=== PATIENT | male | born 1990 | race Caucasian/White ===

== ENCOUNTER 2021-12-15 15:54 | Inpatient (IN) | payer OTHER, SELFPAY ==
--- NOTE | ~2021-12-15 | CT_ITS ---
EXAMINATION: CT ABDOMEN AND PELVIS WITH CONTRAST CLINICAL INFORMATION: Question umbilical abscess with abdominal wall cellulitis COMPARISON: None TECHNIQUE: Multidetector volumetric images were obtained from the superior aspect of the liver through the pubic symphysis following administration 85 mL of Omnipaque 350 intravenous contrast. Sagittal and coronal reformatted images were obtained on the technologist's workstation. This CT examination was performed using dose optimization techniques as appropriate, variously including the following: *Automated exposure control *Adjustment of mA and/or kV according to patient size (this includes techniques or standardized protocols for targeted exams where dose is matched to indication/reason for exam; i.e. extremities or head) *Use of iterative reconstruction technique DLP: 1272 mGy-cm FINDINGS: Visualized lung bases are well aerated. The liver demonstrates normal size, contour and attenuation. The gallbladder is normal in appearance. The pancreas, spleen and adrenal glands are unremarkable. Symmetrically enhancing kidneys. No hydronephrosis bilaterally. Surgical changes of the stomach consistent with gastric bypass. Normal caliber loops of small and large bowel. Mild colonic stool burden. Minimal colonic diverticulosis without CT evidence to suggest active diverticulitis. Normal appendix. There is a tiny fat-containing umbilical hernia. There is soft tissue fullness within the subcutaneous tissues in the umbilical region, however, there is no well-defined fluid collection. There is mild skin thickening in this region. Normal caliber abdominal aorta. No retroperitoneal lymphadenopathy. The bladder is normal in appearance. The prostate gland is normal in size. No gross free pelvic fluid. No inguinal lymphadenopathy. Mild degenerative changes of the spine. CT/CT abdomen pelvis w IV con IMPRESSION: Tiny fat-containing umbilical hernia with overlying soft tissue fullness and mild skin thickening consistent with provided history of cellulitis. There is no well-defined subcutaneous fluid collection to suggest associated abscess. Fleischner guidelines were followed.
[2021-12-15 15:59] VITALS: BP 132/7; PULSE 77; RESP 18; TEMP 37.1; O2SAT 99; BMI 45.6
--- NOTE | 2021-12-15 19:12 | ED.SKABFB ---
HPI - Skin/Abscess/Foreign Bdy General Chief complaint: Skin/Abscess/Foreign Body <CATHY Rolon Last Filed: 12/15/21 20:43> Stated complaint: Abscess <CATHY Rolon Last Filed: 12/15/21 20:43> Time Seen by Provider: 12/15/21 18:43 <CATHY Rolon Last Filed: 12/15/21 20:43> Source: patient <CATHY Rolon Last Filed: 12/15/21 20:43> Mode of arrival: ambulatory <CATHY Rolon Last Filed: 12/15/21 20:43> History of Present Illness HPI narrative: 31-year-old male with no significant past medical history presenting to the ED complaining of suspected umbilical abscess/infection x4 days. Reports area started draining today. Denies fever, chills, nausea, vomiting, diarrhea, dysuria/hematuria <CATHY Rolon Last Filed: 12/15/21 20:43> Onset (ago): day(s) <CATHY Rolon Last Filed: 12/15/21 20:43> Related Data Allergies/Adverse reactions: Allergies Allergy/AdvReac Type Severity Reaction Status Date / Time amoxicillin [AMOXICILLIN] Allergy Unknown HIVES Unverified 12/11/19 16:14 <CATHY Rolon Last Filed: 12/15/21 20:43> Review of Systems Review of Systems: Constitutional: No Fever, No Chills, No Fatigue, No Malaise ENT/Mouth: No Hearing loss, No Ear Pain, No sore throat, No Rhinorrhea, No Swallowing Difficulty Eyes: No Eye Pain, No Swelling, No Redness, No Foreign Body, No Discharge, No Vision Changes Cardiovascular: No Chest Pain, No SOB, No Edema, No Palpitations Respiratory: No Cough, No Sputum, No Dyspnea Gastrointestinal: No Nausea, No Vomiting, No Diarrhea, No Constipation, + Abdominal pain Genitourinary: No irregular bleeding, No Dysuria, No Urinary Frequency, No Hematuria, No Flank Pain Musculoskeletal: No joint pain, No Myalgias, No Joint Swelling Skin: + Skin Lesions, No rash Neuro: No Weakness, No Numbness, No Dizziness, No Headache <CATHY Rolon Last Filed: 12/15/21 20:43> Yes all other systems are reviewed and are negative <CATHY Rolon - Last Filed: 12/15/21 20:43> Constitutional: Constitutional: Reports as per HPI <CATHY Rolon - Last Filed: 12/15/21 20:43> PENDING SALE TO [facility] Past Medical History Attestation statement: The following information was validated with the patient. <CATHY Rolon - Last Filed: 12/15/21 20:43> Social History Social History: Social History Advance Directives: No Advance Directives Information Provided: No <CATHY Rolon - Last Filed: 12/15/21 20:43> Physical Exam Vital Signs: Vital Signs: Last Vital Signs Temp 98.7 F 12/15/21 15:59 Pulse 77 12/15/21 15:59 Resp 18 12/15/21 15:59 BP 132/7 L 12/15/21 15:59 Pulse Ox 99 12/15/21 15:59 O2 Del Method 12/15/21 15:59 BMI result Body Mass Index 45.6 <CATHY Rolon - Last Filed: 12/15/21 20:43> Vital Signs: Last Vital Signs Temp 98.7 F 12/15/21 15:59 Pulse 77 12/15/21 15:59 Resp 18 12/15/21 15:59 BP 132/7 L 12/15/21 15:59 Pulse Ox 99 12/15/21 15:59 O2 Del Method 12/15/21 15:59 BMI result Body Mass Index 45.6 <Cedric Rincon MD - Last Filed: 12/15/21 23:49> Const: General: cooperative and no acute distress <CATHY Rolon - Last Filed: 12/15/21 20:43> Orientation/consciousness: patient oriented x3 <CATHY Rolon - Last Filed: 12/15/21 20:43> Limitations: no limitations <CATHY Rolon - Last Filed: 12/15/21 20:43> HEENT: Head: Yes normal to inspection and Yes atraumatic <Sonja Lernert, PA - Last Filed: 12/15/21 20:43> Ears: hearing grossly normal bilaterally <Sonja Pamelascarlett PA - Last Filed: 12/15/21 20:43> General nose exam: Normal external nose present <Sonja Pamelascarlett PA - Last Filed: 12/15/21 20:43> Face and sinus: Yes normal facial exam <Sonja Pamelascarlett PA - Last Filed: 12/15/21 20:43> Eyes: General: appearance normal, both eyes and all related structures <Sonja Pamelascarlett PA - Last Filed: 12/15/21 20:43> EOM: EOMs intact bilaterally <Sonja Pamelascarlett PA - Last Filed: 12/15/21 20:43> Neck: Neck: Yes normal visual inspection and Yes no meningeal signs <Sonja Pamelascarlett PA - Last Filed: 12/15/21 20:43> Resp: Effort & Inspection: normal respiratory effort and no respiratory distress <Sonja Pamelascarlett PA - Last Filed: 12/15/21 20:43> Cardio: Rate: regular rate <Sonja Pamelascarlett PA - Last Filed: 12/15/21 20:43> Heart sounds: S1 normal heart sound present and S2 normal heart sound present <Sonja Pamelascarlett PA - Last Filed: 12/15/21 20:43> GI: Other: Please refer to image above of periumbilical erythema/cellulitis with supraumbilical tenderness and induration. No appreciable drainage at this time. No fluctuance <Sonja Pamelascarlett PA - Last Filed: 12/15/21 20:43> Inspection: Yes normal to inspection <Sonja Pamelascarlett PA - Last Filed: 12/15/21 20:43> Palpation (GI): Soft to palpation, Tenderness to palpation present (GI) periumbilically; with no rebound tenderness, no guarding and not rigid <Sonja Petit PA - Last Filed: 12/15/21 20:43> : General: Yes no CVA tenderness <Sonja Petit PA - Last Filed: 12/15/21 20:43> Back/Spine/Pelvis: Back: no CVA tenderness <CATHY Rolon - Last Filed: 12/15/21 20:43> Skin: Rashes: no rashes <CATHY Rolon Last Filed: 12/15/21 20:43> Neuro: General: patient oriented x3, tone normal and no meningeal signs <CATHY Rolon - Last Filed: 12/15/21 20:43> Gait exam (Neuro): Normal gait present <CATHY Rolon Last Filed: 12/15/21 20:43> Extrem: General: Yes normal to inspection <CATHY Rolon - Last Filed: 12/15/21 20:43> Course Course Course Narrative: -2100--ED care transferred to Dr. Rincon pending labs, UA, and CTAP. Dispo per results <CATHY Rolon - Last Filed: 12/15/21 20:43> Reevaluation(s) Reevaluation #1: I assumed care of this patient from my colleague, physician bilingual teacher assistant Sonja Villagran at 21:00 hours. I did interview and examine the patient. The patient states that on Sunday (3 days prior) noted redness and pain to his lower abdomen around his umbilical area. He states that he felt hot but did not have a fever, he denied chills. He states that he went to [facility] however to long wait he was not seen. He did draw a line around the redness and today the redness spread beyond was marked area. Also, he states that he was squeezing his umbilical area and was able to drain purulent material from his umbilicus. The patient states that he had leftover doxycycline any took 4 doses of this medication over the past 2 days. He does not have a history of MRSA but he states that his did have MRSA 10 years ago. At the time my evaluation he had no complaints. Patient's physical examination did reveal a large area of erythema which spread significantly beyond the marked line that he erinn 2 days previously. There is a brownish thin fluid draining from his umbilical area which I did culture. He had mild tenderness with palpation over the area of erythema. Laboratory evaluation revealed a normal WBC of 9000. Anemia with an H&H of 13 and 37.3 with a normal MCV of 86.9. Patient had an elevated CRP of 8.9, elevated ESR of 29. CT scan of the abdomen pelvis with IV contrast was read by the radiologist as follows: Impression Tiny fat-containing umbilical hernia with overlying soft tissue fullness and mild skin thickening consistent with provided history of cellulitis. There is no well-defined subcutaneous fluid collection to suggest associated abscess. ? Dictated By: Obey Bueno MD CT scan is consistent with cellulitis with no drainable abscess. The patient did receive ceftriaxone 1 g IV. After my evaluation I am concerned that he may have MRSA specially since it appears that he has a draining abscess. I ordered vancomycin 2 g IV. I will discuss admission with the covering hospitalist, Dr. Guerrero. <Cedric Rincon MD - Last Filed: 12/15/21 23:49> Time: 23:14 <Cedric Rincon MD - Last Filed: 12/15/21 23:49> MDM - Skin/Abscess/Foreign Bdy MDM Narrative Medical decision making narrative: 31-year-old male with no significant past medical history presenting to the ED complaining of suspected umbilical abscess/infection x4 days. On exam vital signs stable, NAD, nontoxic appearing, please refer to image above, abdomen soft with periumbilical tenderness an appreciable induration. No fluctuance or active drainage. Concern for cellulitis with underlying abscess. Low suspicion for severe sepsis at this time Plan: Labs, UA, lactic/blood cultures, empiric IV antibiotics, CT AP <CATHY Rolon - Last Filed: 12/15/21 20:43> Differential Diagnosis Differential diagnosis: Likely abscess of skin or subcutaneous tissue and cellulitis <CATHY Rolon - Last Filed: 12/15/21 20:43> Medical Records Attestation: I reviewed the patient's medical records. <CATHY Rolon - Last Filed: 12/15/21 20:43> Lab Data Attestation: I reviewed the patient's lab results. <CATHY Rolon - Last Filed: 12/15/21 20:43> Result diagrams: : 12/15/21 20:21 12/15/21 20:21 <CATHY Rolon - Last Filed: 12/15/21 20:43> Labs: Lab Results 09/12/15/21 12/15/21 Range/Units 20:21 20:21 20:21 WBC 9.0 (4.8-10.8) X10*3/uL RBC 4.29 L (4.60-5.80) X10*6/uL Hgb 13.3 L (14.0-18.0) g/dl Hct 37.3 L (42.0-52.0) % MCV 86.9 (80.0-98.0) fL MCH 31.0 (27.0-33.0) pg MCHC 35.7 (31.0-36.0) g/dl RDW 11.9 (11.0-16.0) % Plt Count 191 (160-400) X10*3/uL MPV 10.4 (9.4-12.4) fL Immature Gran % (Auto) 0.2 (0.0-0.4) % Neut % (Auto) 59.0 (45-73) % Lymph % (Auto) 32.1 (20-40) % [place] % (Auto) 7.3 (2-11) % Eos % (Auto) 1.1 (0-4) % Baso % (Auto) 0.3 (0-2) % Lymph # (Auto) 2.9 (1.2-4.9) X10*3/uL [place] # (Auto) 0.7 (0.1-1.2) X10*3/uL Eos # (Auto) 0.1 (0.0-0.4) X10*3/uL Baso # (Auto) 0.0 (0.0-0.2) X10*3/uL Abs Immat Gran (auto) 0.02 (0.00-0.03) X10*3/uL Absolute Neuts (auto) 5.3 (2.0-8.3) x10*3/uL Absolute Nucleated RBC 0.000 (0.0-0.012) X10*3/uL Nucleated RBC % (auto) 0.0 (0.0-0.2) /100WBC ESR 29 H (0-15) MM/HR Sodium 140 (135-145) mmol/L Potassium 4.5 (3.3-5.1) mmol/L Chloride 102 (96-108) mmol/L Carbon Dioxide 26 (22-29) mmol/L Anion Gap 17 (12-20) BUN 11 (9-16) mg/dL Creatinine 0.82 (0.5-1.4) mg/dL Estim Creat Clear Calc 177.8 Estimated GFR > 60 Random Glucose 96 (60-115) mg/dL Lactic Acid (0.5-2.0) mmol/L Calcium 9.6 (8.4-10.2) mg/dL Magnesium 1.9 (1.6-2.6) mg/dL Total Bilirubin 0.6 (0.0-1.0) mg/dL Direct Bilirubin 0.3 (0.0-0.5) mg/dL AST 18 (5-37) U/L ALT 10 (0-40) U/L Alkaline Phosphatase 55 (39-117) U/L C-Reactive Protein 8.94 H (< or = 0.50) mg/dL Total Protein 7.3 (6.5-8.0) g/dL Albumin 4.4 (3.5-5.0) g/dL Lipase 32 (8-78) U/L Urine Color Urine Appearance Urine pH (5.0-9.0) Ur Specific [place] (1.005-1.025) Urine Protein (Neg-Trace) mg/dL Urine Glucose (UA) (Negative) mg/dL Urine Ketones (Negative) mg/dL Urine Blood (Negative) Urine Nitrite (Negative) Ur Leukocyte Esterase (Negative) 12/15/21 12/15/21 Range/Units 20:21 21:02 WBC (4.8-10.8) X10*3/uL RBC (4.60-5.80) X10*6/uL Hgb (14.0-18.0) g/dl Hct (42.0-52.0) % MCV (80.0-98.0) fL MCH (27.0-33.0) pg MCHC (31.0-36.0) g/dl RDW (11.0-16.0) % Plt Count (160-400) X10*3/uL MPV (9.4-12.4) fL Immature Gran % (Auto) (0.0-0.4) % Neut % (Auto) (45-73) % Lymph % (Auto) (20-40) % [place] % (Auto) (2-11) % Eos % (Auto) (0-4) % Baso % (Auto) (0-2) % Lymph # (Auto) (1.2-4.9) X10*3/uL [place] # (Auto) (0.1-1.2) X10*3/uL Eos # (Auto) (0.0-0.4) X10*3/uL Baso # (Auto) (0.0-0.2) X10*3/uL Abs Immat Gran (auto) (0.00-0.03) X10*3/uL Absolute Neuts (auto) (2.0-8.3) x10*3/uL Absolute Nucleated RBC (0.0-0.012) X10*3/uL Nucleated RBC % (auto) (0.0-0.2) /100WBC ESR (0-15) MM/HR Sodium (135-145) mmol/L Potassium (3.3-5.1) mmol/L Chloride (96-108) mmol/L Carbon Dioxide (22-29) mmol/L Anion Gap (12-20) BUN (9-16) mg/dL Creatinine (0.5-1.4) mg/dL Estim Creat Clear Calc Estimated GFR Random Glucose (60-115) mg/dL Lactic Acid 0.8 (0.5-2.0) mmol/L Calcium (8.4-10.2) mg/dL Magnesium (1.6-2.6) mg/dL Total Bilirubin (0.0-1.0) mg/dL Direct Bilirubin (0.0-0.5) mg/dL AST (5-37) U/L ALT (0-40) U/L Alkaline Phosphatase (39-117) U/L C-Reactive Protein (< or = 0.50) mg/dL Total Protein (6.5-8.0) g/dL Albumin (3.5-5.0) g/dL Lipase (8-78) U/L Urine Color Dark Yellow Urine Appearance Clear Urine pH 6.0 (5.0-9.0) Ur Specific [place] >= 1.030 H (1.005-1.025) Urine Protein Negative (Neg-Trace) mg/dL Urine Glucose (UA) Negative (Negative) mg/dL Urine Ketones Trace (Negative) mg/dL Urine Blood Negative (Negative) Urine Nitrite Negative (Negative) Ur Leukocyte Esterase Negative (Negative) <CATHY Rolon - Last Filed: 12/15/21 20:43> Lab Results 12/15/21 12/15/21 12/15/21 Range/Units 20:21 20:21 20:21 WBC 9.0 (4.8-10.8) X10*3/uL RBC 4.29 L (4.60-5.80) X10*6/uL Hgb 13.3 L (14.0-18.0) g/dl Hct 37.3 L (42.0-52.0) % MCV 86.9 (80.0-98.0) fL MCH 31.0 (27.0-33.0) pg MCHC 35.7 (31.0-36.0) g/dl RDW 11.9 (11.0-16.0) % Plt Count 191 (160-400) X10*3/uL MPV 10.4 (9.4-12.4) fL Immature Gran % (Auto) 0.2 (0.0-0.4) % Neut % (Auto) 59.0 (45-73) % Lymph % (Auto) 32.1 (20-40) % [place] % (Auto) 7.3 (2-11) % Eos % (Auto) 1.1 (0-4) % Baso % (Auto) 0.3 (0-2) % Lymph # (Auto) 2.9 (1.2-4.9) X10*3/uL [place] # (Auto) 0.7 (0.1-1.2) X10*3/uL Eos # (Auto) 0.1 (0.0-0.4) X10*3/uL Baso # (Auto) 0.0 (0.0-0.2) X10*3/uL Abs Immat Gran (auto) 0.02 (0.00-0.03) X10*3/uL Absolute Neuts (auto) 5.3 (2.0-8.3) x10*3/uL Absolute Nucleated RBC 0.000 (0.0-0.012) X10*3/uL Nucleated RBC % (auto) 0.0 (0.0-0.2) /100WBC ESR 29 H (0-15) MM/HR Sodium 140 (135-145) mmol/L Potassium 4.5 (3.3-5.1) mmol/L Chloride 102 (96-108) mmol/L Carbon Dioxide 26 (22-29) mmol/L Anion Gap 17 (12-20) BUN 11 (9-16) mg/dL Creatinine 0.82 (0.5-1.4) mg/dL Estim Creat Clear Calc 177.8 Estimated GFR > 60 Random Glucose 96 (60-115) mg/dL Lactic Acid (0.5-2.0) mmol/L Calcium 9.6 (8.4-10.2) mg/dL Magnesium 1.9 (1.6-2.6) mg/dL Total Bilirubin 0.6 (0.0-1.0) mg/dL Direct Bilirubin 0.3 (0.0-0.5) mg/dL AST 18 (5-37) U/L ALT 10 (0-40) U/L Alkaline Phosphatase 55 (39-117) U/L C-Reactive Protein 8.94 H (< or = 0.50) mg/dL Total Protein 7.3 (6.5-8.0) g/dL Albumin 4.4 (3.5-5.0) g/dL Lipase 32 (8-78) U/L Urine Color Urine Appearance Urine pH (5.0-9.0) Ur Specific [place] (1.005-1.025) Urine Protein (Neg-Trace) mg/dL Urine Glucose (UA) (Negative) mg/dL Urine Ketones (Negative) mg/dL Urine Blood (Negative) Urine Nitrite (Negative) Ur Leukocyte Esterase (Negative) 12/15/21 12/15/21 Range/Units 20:21 21:02 WBC (4.8-10.8) X10*3/uL RBC (4.60-5.80) X10*6/uL Hgb (14.0-18.0) g/dl Hct (42.0-52.0) % MCV (80.0-98.0) fL MCH (27.0-33.0) pg MCHC (31.0-36.0) g/dl RDW (11.0-16.0) % Plt Count (160-400) X10*3/uL MPV (9.4-12.4) fL Immature Gran % (Auto) (0.0-0.4) % Neut % (Auto) (45-73) % Lymph % (Auto) (20-40) % [place] % (Auto) (2-11) % Eos % (Auto) (0-4) % Baso % (Auto) (0-2) % Lymph # (Auto) (1.2-4.9) X10*3/uL [place] # (Auto) (0.1-1.2) X10*3/uL Eos # (Auto) (0.0-0.4) X10*3/uL Baso # (Auto) (0.0-0.2) X10*3/uL Abs Immat Gran (auto) (0.00-0.03) X10*3/uL Absolute Neuts (auto) (2.0-8.3) x10*3/uL Absolute Nucleated RBC (0.0-0.012) X10*3/uL Nucleated RBC % (auto) (0.0-0.2) /100WBC ESR (0-15) MM/HR Sodium (135-145) mmol/L Potassium (3.3-5.1) mmol/L Chloride (96-108) mmol/L Carbon Dioxide (22-29) mmol/L Anion Gap (12-20) BUN (9-16) mg/dL Creatinine (0.5-1.4) mg/dL Estim Creat Clear Calc Estimated GFR Random Glucose (60-115) mg/dL Lactic Acid 0.8 (0.5-2.0) mmol/L Calcium (8.4-10.2) mg/dL Magnesium (1.6-2.6) mg/dL Total Bilirubin (0.0-1.0) mg/dL Direct Bilirubin (0.0-0.5) mg/dL AST (5-37) U/L ALT (0-40) U/L Alkaline Phosphatase (39-117) U/L C-Reactive Protein (< or = 0.50) mg/dL Total Protein (6.5-8.0) g/dL Albumin (3.5-5.0) g/dL Lipase (8-78) U/L Urine Color Dark Yellow Urine Appearance Clear Urine pH 6.0 (5.0-9.0) Ur Specific [place] >= 1.030 H (1.005-1.025) Urine Protein Negative (Neg-Trace) mg/dL Urine Glucose (UA) Negative (Negative) mg/dL Urine Ketones Trace (Negative) mg/dL Urine Blood Negative (Negative) Urine Nitrite Negative (Negative) Ur Leukocyte Esterase Negative (Negative) <Cedric Rincon MD - Last Filed: 12/15/21 23:49> Discharge Plan Discharge Clinical Impression: Cellulitis <CATHY Rolon - Last Filed: 12/15/21 20:43> Patient Disposition: Admitted As Inpatient <CATHY Rolon - Last Filed: 12/15/21 20:43>
[2021-12-15 20:30] LABS: MANUAL DIFF FLAG NO
[2021-12-15 20:33] LABS: Basophils Percent Auto 0.3 % (0-2); Eosinophils Absolute Auto 0.1 X10*3/uL (0.0-0.4); Eosinophils Percent Auto 1.1 % (0-4); Hematocrit 37.3 % (42.0-52.0); Hemoglobin 13.3 g/dl (14.0-18.0); Imm Gran Abs Auto 0.02 X10*3/uL (0.00-0.03); Imm Gran Pct Auto 0.2 % (0.0-0.4); Lymphocytes Absolute Auto 2.9 X10*3/uL (1.2-4.9); Lymphocytes Percent Auto 32.1 % (20-40); Mean Corpuscular HGB Conc 35.7 g/dl (31.0-36.0); Mean Corpuscular Volume 86.9 fL (80.0-98.0); Mean Platelet Volume 10.4 fL (9.4-12.4); Monocytes Absolute Auto 0.7 X10*3/uL (0.1-1.2); Monocytes Percent Auto 7.3 % (2-11); Neutrophils Absolute Auto 5.3 x10*3/uL (2.0-8.3); Platelet Count 191 X10*3/uL (160-400); Red Blood Count 4.29 X10*6/uL (4.60-5.80); Red Cell Distribution Width 11.9 % (11.0-16.0)
[2021-12-15] MEDS: 0.9 % Sodium Chloride 1,000 ML 999 ML IV (20:33)
[2021-12-15 20:43] LABS: Lactic Acid 0.8 mmol/L (0.5-2.0)
[2021-12-15 20:51] LABS: Alanine Aminotransferase 10 U/L (0-40); Albumin Level 4.4 g/dL (3.5-5.0); Alkaline Phosphatase 55 U/L (39-117); Anion Gap 17 (12-20); Aspartate Amino Transferase 18 U/L (5-37); Bilirubin Direct 0.3 mg/dL (0.0-0.5); Bilirubin Total 0.6 mg/dL (0.0-1.0); Blood Urea Nitrogen 11 mg/dL (9-16); C Reactive Protein 8.94 mg/dL (< or = 0.50); Calcium 9.6 mg/dL (8.4-10.2); Carbon Dioxide 26 mmol/L (22-29); Chloride 102 mmol/L (96-108); Creatinine Clr Calc Pharmacy 177.8; Estimated Glomerular Filt Rate > 60; Glucose Random 96 mg/dL (60-115); Lipase 32 U/L (8-78); Magnesium 1.9 mg/dL (1.6-2.6); Potassium 4.5 mmol/L (3.3-5.1); Sodium 140 mmol/L (135-145); Total Protein 7.3 g/dL (6.5-8.0)
[2021-12-15] MEDS: cefTRIAXone sodium 1 GM in 0.9 % Sodium Chloride 50 ML IV (20:55)
[2021-12-15 21:11] LABS: Appearance Urine Clear; Color Urine Dark Yellow; Glucose Urine UA Negative (Negative); Leukocyte Esterase Urine Negative (Negative); Nitrite Urine Negative (Negative); Specific Gravity - Urine >= 1.030 (1.005-1.025); Urine Blood Negative (Negative); Urine Ketones Trace mg/dL (Negative); Urine Protein Negative (Neg-Trace)
[2021-12-15 21:11] LABS: Erythrocyte Sedimentation Rate 29 MM/HR (0-15)
[2021-12-15] MEDS: iohexoL 350 MG/ML 100 ML INFUS..BTL 85 ML IV (21:46)
[2021-12-15] MEDS: Ketorolac Tromethamine 15 MG/ML VIAL IVPUSH (21:49)
--- NOTE | 2021-12-16 00:25 | PM.IMHP ---
History of Present Illness Date of Service: 12/16/21 Chief Complaint: abscess/cellulitis 31-year-old male with no significant past medical history who presents to the hospital with complaints of abscess in the umbilical region. Patient reports that it started about 4 days ago, he had doxycycline at home, he took about 6 pills of doxycycline with initial improvement then it got worse again. He tried to drain the abscess home himself and had purulent discharge, he reports chills with no fever. He reports the redness around his local area was increasing and therefore he decided to come to hospital. He denies any headache no change in vision, no chest pain, no shortness of breath, no abdominal pain nausea or vomiting, no diarrhea constipation, no urinary symptoms and no lower extremity edema. On arrival to the ED patient hemodynamically stable with no significant abnormal vitals Labs are significant for WBC count of 9.0, hemoglobin of 13.3, hematocrit 37.3, ESR of 29, see her P of 8.94, abdomen pelvic CT shows fat containing umbilical hernia with overlying soft tissue fullness and mild skin thickening consistent with cellulitis. No well-defined subcutaneous fluid collection to suggest abscess Review of Systems Review of Systems: Yes all other systems are reviewed and are negative [facility] Medical History (Updated 12/16/21 @ 06:00 by Pradeep Guerrero MD) No pertinent past medical history Family History (Updated 12/16/21 @ 06:01 by Pradeep Guerrero MD) Other No family history of coronary artery disease Surgical History (Updated 12/16/21 @ 06:01 by Pradeep Guerrero MD) Gastric bypass status for obesity Social History Alcohol intake: never Patient Tobacco Use Status: Never used Tobacco Use of substances other than those prescribed or required for medical reasons: No Advance Directives: No Advance Directives Information Provided: No Meds Allergies Allergy/AdvReac Type Severity Reaction Status Date / Time amoxicillin [AMOXICILLIN] Allergy Unknown HIVES Unverified 12/11/19 16:14 Active Medications: Current Medications Vancomycin HCl (Vancomycin/Ns) 2,000 mg in 520 mls @ 260 mls/hr IV ONCE ONE Stop: 12/16/21 01:12 Last Admin: 12/15/21 23:50 Dose: 260 mls/hr Pharmacy Consult (Consult Rx Vancomycin Dosing) 1 each MISCELLANE DAILY PRN PRN Reason: Consult order Physical Exam Vital Signs and Narrative: Vital Signs: Last Vital Signs Temp 98.7 F 12/15/21 15:59 Pulse 77 12/15/21 15:59 Resp 18 12/15/21 15:59 BP 132/7 L 12/15/21 15:59 Pulse Ox 99 12/15/21 15:59 O2 Del Method 12/15/21 15:59 BMI result Body Mass Index 45.6 Const: General: cooperative and no acute distress Orientation/consciousness: patient oriented x3 Eyes: General: appearance normal, both eyes and all related structures Pupils: Equal, round and reactive pupils present Resp: Effort & Inspection: normal respiratory effort Auscultation: clear to auscultation bilaterally Cardio: Rate: regular rate Rhythm: regular rhythm GI: Palpation (GI): Soft to palpation Auscultation: normal bowel sounds Skin: Other: patient has erythema, warmth, tenderness in the area around the umbilical region, there is no definite evidence of abscess Neuro: General: patient oriented x3 Cranial nerves: Yes Equal, round and reactive pupils present Cognition (Neuro): normal cognition Extrem: General: Yes normal to inspection and Yes no pedal edema Results Labs CBC and Chem 7: 12/15/21 20:21 12/15/21 20:21 Labs: Laboratory Results - last 24 hr 12/15/21 12/15/21 12/15/21 20:21 20:21 20:21 MCV 86.9 MCH 31.0 MCHC 35.7 RDW 11.9 Plt Count 191 MPV 10.4 Immature Gran % (Auto) 0.2 Neut % (Auto) 59.0 Lymph % (Auto) 32.1 [place] % (Auto) 7.3 Eos % (Auto) 1.1 Baso % (Auto) 0.3 Lymph # (Auto) 2.9 [place] # (Auto) 0.7 Eos # (Auto) 0.1 Baso # (Auto) 0.0 Abs Immat Gran (auto) 0.02 Absolute Neuts (auto) 5.3 Absolute Nucleated RBC 0.000 Nucleated RBC % (auto) 0.0 ESR 29 H Anion Gap 17 Estim Creat Clear Calc 177.8 Estimated GFR > 60 Random Glucose 96 Lactic Acid Calcium 9.6 Magnesium 1.9 Total Bilirubin 0.6 Direct Bilirubin 0.3 AST 18 ALT 10 Alkaline Phosphatase 55 C-Reactive Protein 8.94 H Total Protein 7.3 Albumin 4.4 Lipase 32 Urine Color Urine Appearance Urine pH Ur Specific [place] Urine Protein Urine Glucose (UA) Urine Ketones Urine Blood Urine Nitrite Ur Leukocyte Esterase 12/15/21 12/15/21 20:21 21:02 MCV MCH MCHC RDW Plt Count MPV Immature Gran % (Auto) Neut % (Auto) Lymph % (Auto) [place] % (Auto) Eos % (Auto) Baso % (Auto) Lymph # (Auto) [place] # (Auto) Eos # (Auto) Baso # (Auto) Abs Immat Gran (auto) Absolute Neuts (auto) Absolute Nucleated RBC Nucleated RBC % (auto) ESR Anion Gap Estim Creat Clear Calc Estimated GFR Random Glucose Lactic Acid 0.8 Calcium Magnesium Total Bilirubin Direct Bilirubin AST ALT Alkaline Phosphatase C-Reactive Protein Total Protein Albumin Lipase Urine Color Dark Yellow Urine Appearance Clear Urine pH 6.0 Ur Specific [place] >= 1.030 H Urine Protein Negative Urine Glucose (UA) Negative Urine Ketones Trace Urine Blood Negative Urine Nitrite Negative Ur Leukocyte Esterase Negative Imaging Radiologist's Impressions: Impressions Abdomen/Pelvis CT 12/15/21 21:45 IMPRESSION: Tiny fat-containing umbilical hernia with overlying soft tissue fullness and mild skin thickening consistent with provided history of cellulitis. There is no well-defined subcutaneous fluid collection to suggest associated abscess. Fleischner guidelines were followed. Assessment and Plan (1) Cellulitis: Status: Acute Plan this is a 31-year-old male with no significant past medical history presents to the hospital complaints of who skin redness, and pain found to have cellulitis # acute cellulitis/?abscess - patient has erythema, warmth, tenderness, and swell as edema around the umbilical region - he also reported an abscess like lesion in the umbilicus that has been draining purulent discharge - CT abdomen pelvis shows evidence of cellulitis with no evidence of fluid collection - patient had doxycycline at home and tried it for 3 days with worsening symptoms - for patient will be admitted for IV antibiotics, will treat him with vancomycin, follow cultures DVT prophylaxis: early ambulation Pt will require a minimum 2 night hospital stay for IV antibiotics Quality Stroke Does the patient have a stroke diagnosis?: No VTE Prior VTE?: No VTE Risk Level:: Medical - low VTE Device Contraindication: Treatment Not Indicated VTE Drug Contraindication: Treatment Not Indicated
[2021-12-16] MEDS: oxyCODONE HCl Immed Release 5 MG TABLET PO ×3 (04:21→18:32)
[2021-12-16] MEDS: Acetaminophen 325 MG TABLET 650 MG PO (04:21)
[2021-12-16 06:00] VITALS: BP 117/69; PULSE 64; O2SAT 99
--- NOTE | 2021-12-16 06:49 | PC.NURSE ---
pt is resting comfortable in bed. no sign of distress at this time. will continue to monitor.
--- NOTE | 2021-12-16 07:42 | PHA.MEDREC ---
Pharmacy Consult ? Medication Reconciliation Pharmacy has completed the medication reconciliation.
[2021-12-16] MEDS: 0.9 % Sodium Chloride Flush 3 ML SYRINGE IVFLUSH ×2 (09:59→18:32)
[2021-12-16 10:03] VITALS: BP 122/65; PULSE 68; RESP 16; TEMP 36.7; O2SAT 100
--- NOTE | 2021-12-16 10:26 | P.DS_ITS ---
DS: Providers Provider Date of Service: 12/16/21 Date of admission: 12/16/21 00:23 Primary care physician: Abhishek Perry III, MD DS: Diagnosis Discharge Diagnosis (1) Cellulitis: Status: Acute DS: Summary Hospital Course Hospital Course: Chief Complaint:? abscess/cellulitis ?31-year-old male with no significant past medical history who presents to the hospital with complaints of abscess in the umbilical region.? Patient reports that it started about 4 days ago, he had doxycycline at home, he took about 6 pills of doxycycline with initial improvement then? it got worse again.? He tried to drain the abscess home himself and had purulent discharge, he reports chills with no fever.? He reports the redness around his local area was increasing and therefore he decided to come to hospital.? He denies any headache no change in vision, no? chest pain, no shortness of breath, no abdominal pain nausea or vomiting, no diarrhea constipation, no urinary symptoms and no lower extremity edema. On arrival to the ED patient hemodynamically stable with no significant abnormal vitals Labs are significant for? WBC count of 9.0, hemoglobin of 13.3, hematocrit 37.3, ESR of 29, see her P of 8.94, ?abdomen pelvic CT shows fat containing umbilical hernia with overlying soft tissue fullnes Hospital course: Patient was admitted for IV antibiotics for abdominal wall cellulitis and was recommended to get IV antibitics until much better but after 2 doses of Vancomycin 12 hours apart there was noted improvement of the area of erythema and he felt better enough and would no lenger stay in the hospital but was open to oral antibiotics. He understood that he was leaving against medical advise and that infection could get worse and even lead to sepsis or even --he accepts all responsibilities Time Spent with Patient Time attestation: Total time spent providing and/or coordinating discharge services: Discharge coordination time: Greater than 30 minutes Quality: Safe Use of Opioids Does Pt have an Active Cancer Diagnosis on the Problem List?: No Quality: Stroke Does the patient have a stroke diagnosis?: No Physical Exam Vital Signs: Vital Signs: Last Vital Signs Temp 98.0 F 12/16/21 10:03 Pulse 68 12/16/21 10:03 Resp 16 12/16/21 10:03 BP 122/65 12/16/21 10:03 Pulse Ox 100 12/16/21 10:03 O2 Del Method 12/16/21 10:03 BMI result Body Mass Index 45.6 DS: Data Data Completed and Pending Labs on day of discharge: Laboratory Results - last 24 hr 12/15/21 12/15/21 12/15/21 20:21 20:21 20:21 WBC 9.0 RBC 4.29 L Hgb 13.3 L Hct 37.3 L MCV 86.9 MCH 31.0 MCHC 35.7 RDW 11.9 Plt Count 191 MPV 10.4 Immature Gran % (Auto) 0.2 Neut % (Auto) 59.0 Lymph % (Auto) 32.1 [place] % (Auto) 7.3 Eos % (Auto) 1.1 Baso % (Auto) 0.3 Lymph # (Auto) 2.9 [place] # (Auto) 0.7 Eos # (Auto) 0.1 Baso # (Auto) 0.0 Abs Immat Gran (auto) 0.02 Absolute Neuts (auto) 5.3 Absolute Nucleated RBC 0.000 Nucleated RBC % (auto) 0.0 ESR 29 H Sodium 140 Potassium 4.5 Chloride 102 Carbon Dioxide 26 Anion Gap 17 BUN 11 Creatinine 0.82 Estim Creat Clear Calc 177.8 Estimated GFR > 60 Random Glucose 96 Lactic Acid Calcium 9.6 Magnesium 1.9 Total Bilirubin 0.6 Direct Bilirubin 0.3 AST 18 ALT 10 Alkaline Phosphatase 55 C-Reactive Protein 8.94 H Total Protein 7.3 Albumin 4.4 Lipase 32 Urine Color Urine Appearance Urine pH Ur Specific [place] Urine Protein Urine Glucose (UA) Urine Ketones Urine Blood Urine Nitrite Ur Leukocyte Esterase 12/15/21 12/15/21 20:21 21:02 WBC RBC Hgb Hct MCV MCH MCHC RDW Plt Count MPV Immature Gran % (Auto) Neut % (Auto) Lymph % (Auto) [place] % (Auto) Eos % (Auto) Baso % (Auto) Lymph # (Auto) [place] # (Auto) Eos # (Auto) Baso # (Auto) Abs Immat Gran (auto) Absolute Neuts (auto) Absolute Nucleated RBC Nucleated RBC % (auto) ESR Sodium Potassium Chloride Carbon Dioxide Anion Gap BUN Creatinine Estim Creat Clear Calc Estimated GFR Random Glucose Lactic Acid 0.8 Calcium Magnesium Total Bilirubin Direct Bilirubin AST ALT Alkaline Phosphatase C-Reactive Protein Total Protein Albumin Lipase Urine Color Dark Yellow Urine Appearance Clear Urine pH 6.0 Ur Specific [place] >= 1.030 H Urine Protein Negative Urine Glucose (UA) Negative Urine Ketones Trace Urine Blood Negative Urine Nitrite Negative Ur Leukocyte Esterase Negative Discharge Plan Discharge Patient Disposition: Home, Self-Care Discharge Diagnosis: Abdominal wall cellulitis Referrals: Abhishek Perry III, MD [Primary Care Provider] - 1 Week Discharge Medications: New doxycycline hyclate 100 mg tablet 100 mg PO BID 14 Days Qty: 28 0RF Continued lorazepam 0.5 mg tablet 1 tab PO BID PRN (Reason: Anxiety) Diet: Advance to usual diet Activity on Discharge: As tolerated Stand Alone Forms: Patient Portal Discharge page Care Plan Goals: Full recovery from cellulitis Health Concerns: abdominal wall cellulitis Plan of Treatment: Take Doxycyline as recommended and follow up with your Doctor in a wee You understand that we wanted you to remain in the hospital for up to 48 hours of IV antibiotics but you decline this and understand that you are leaving against medical advise Assessment: as above
[2021-12-16 10:36] LABS: MANUAL DIFF FLAG NO
[2021-12-16 10:41] LABS: Basophils Absolute Auto 0.1 X10*3/uL (0.0-0.2); Basophils Percent Auto 0.9 % (0-2); Eosinophils Absolute Auto 0.1 X10*3/uL (0.0-0.4); Eosinophils Percent Auto 1.9 % (0-4); Hematocrit 37.5 % (42.0-52.0); Imm Gran Abs Auto 0.01 X10*3/uL (0.00-0.03); Imm Gran Pct Auto 0.2 % (0.0-0.4); Lymphocytes Percent Auto 30.5 % (20-40); Mean Corpuscular HGB Conc 34.7 g/dl (31.0-36.0); Mean Corpuscular Hemoglobin 30.2 pg (27.0-33.0); Mean Platelet Volume 10.1 fL (9.4-12.4); Monocytes Absolute Auto 0.5 X10*3/uL (0.1-1.2); Monocytes Percent Auto 7.4 % (2-11); Neutrophils Absolute Auto 3.8 x10*3/uL (2.0-8.3); Neutrophils Percent Auto 59.1 % (45-73); Platelet Count 188 X10*3/uL (160-400); Red Blood Count 4.31 X10*6/uL (4.60-5.80); Red Cell Distribution Width 11.9 % (11.0-16.0); White Blood Count 6.5 X10*3/uL (4.8-10.8)
[2021-12-16 10:56] LABS: Creatinine Clr Calc Pharmacy 191.9; Estimated Glomerular Filt Rate > 60
[2021-12-16 10:58] LABS: Anion Gap 16 (12-20); Blood Urea Nitrogen 13 mg/dL (9-16); Calcium 8.9 mg/dL (8.4-10.2); Carbon Dioxide 24 mmol/L (22-29); Chloride 105 mmol/L (96-108); Creatinine Clr Calc Pharmacy 182.3; Estimated Glomerular Filt Rate > 60; Glucose Random 99 mg/dL (60-115); Sodium 141 mmol/L (135-145)
--- NOTE | 2021-12-16 11:00 | PHA.PROG ---
Admission Date/Time: December 16, 2021 00:23 Indication: Skin infection Weight in k.078 kg Adjusted body weight in K.4 [place] body weight in K.4 Obesity Dosing Indication % IBW: 198% Serum Creatinine - Last 168 Hours 12/15/21 12/16/21 12/16/21 20:21 10:30 10:30 Creatinine 0.82 0.80 0.76 Estimated CrCl and GFR - Last 168 Hours 12/15/21 12/16/21 12/16/21 20: 10:30 10:30 Estim Creat Clear Calc 177.8 182.3 191.9 Estimated GFR > 60 > 60 > 60 Vancomycin Loading Dose: 2000 mg Current Vancomycin Dosing Regimen: 1250 mg Q12H Date and Time for next Vancomycin Level to be drawn: 12/17 @ 0900 Pharmacist Comments on Vancomycin Plan: patient is morbidly obese therefore requires careful monitoring Patient received vancomcy 2g on 12/15 @ 2350. Maintenance dose vanco 1250 mg Q12H scheduled to start 12/16 @ 1100. Expected AUC 555 with a trough of 12.2 Trough to be drawn prior to 4th dose. Pharmacy to monitor renal function daily. Melanie Grey PharmD Vancomycin dosing will take advantage of Context app as a clinical decision support tool that uses Bayesian modeling to calculate individual patient's pharmacokinetic parameters and forecast the patient's drug concentration time course with the target goal AUC 24 range of 400 - 600 mg/L/hr.
[2021-12-16] MEDS: vancomycin HCL 1,250 MG in 0.9 % Sodium Chloride 250 ML 166.67 MG IV ×2 (11:09→22:57)
--- NOTE | 2021-12-16 11:21 | PC.NURSE ---
patient a/ox4 . at bedside . rafa . heart rate regular 88 beats . reports 10/10 pain level at abscess . patient refused assessment of abscess at this time . patient has requested to discharge after second dose of antibiotic this evening Dr Ham Zhong aware . patient aware of plan of care .
[2021-12-16 14:31] VITALS: BP 125/61; PULSE 81; RESP 16; TEMP 36.5; O2SAT 98
--- NOTE | 2021-12-16 19:12 | PC.NURSE ---
Report given to JERRY Boudreaux at this time
--- NOTE | 2021-12-16 20:43 | PM.EVENT ---
Event Note Date of Service: 12/16/21 Event Note: Patient Wants to leave. He is feeling significantly better with improvement of his symptoms. I will send his antibiotics to his preferred pharmacy.
[2021-12-16 20:57] VITALS: BP 124/64; PULSE 82; RESP 18; TEMP 36.7; O2SAT 98
--- NOTE | 2021-12-16 23:58 | PC.NURSE ---
Assumed care of patient at 1900. Patient is alert and oriented. Per report, patient wants to leave after antibiotic at 2300 is completed. Upon assessment, patient requested to speak to a doctor. Hospitalist at bedside, patient to be discharged after antibiotic is completed.
[2021-12-17] VITALS: BP 125/74; PULSE 62; RESP 18; TEMP 36.4; O2SAT 100
[2021-12-17] MEDS: 0.9 % Sodium Chloride Flush 3 ML SYRINGE IVFLUSH (00:03)
--- NOTE | 2021-12-17 01:02 | PC.NURSE ---
CARE ASSUMED 23:15...AWAKE..ALERT..ORIENTED X3..VSS...ABDOMINAL DRESSING INTACT..REDNESS REMAINS TO LOWER ABDOMEN WITH REDNESS PREVIOUSLY DEMARCATED...VANCOMYCIN INFUSED W/O INCIDENT....DISCHARGE INSTRUCTIONS CONFIRMED WITH DR EVANS..ANTIBIOTIC PRESCRIPTION PREVIOUSLY SENT TO PATIENTS PHARMACY PER MD...IV D/C'D INTACT..ESCORTED/AMBULATED TO ER MAIN ENTRANCE WITH STEADY GAIT...DENIED/OFFERED NO COMPLAINTS...VERBALIZED [facility]ERSTAND[facility]
--- NOTE | 2021-12-20 10:15 | P.CDIR_ITS ---
Retrospective Query PHYSICIAN'S DOCUMENTATION REQUEST Date of Query: 12/20/21 1016 Patient Name: Ab Bearden Admit Date: 12/16/21 Dear Doctor, A review of the medical record indicates additional documentation may be needed. Please review below and update the documentation accordingly. Clinical Indicators: Risk Factors/Clinical Indicators/Treatments BMI: 45.6 Patient left against medical advice. If possible, please provide an associated diagnosis related to the abnormal BMI, such as: For a BMI >= 40: * Overweight * Obesity * Due to excess calories * Drug induced * Due to other cause * Severe or Morbid Obesity * With alveolar hypoventilation * Without alveolar hypoventilation * Other * Unable to determine Use of terms such as suspected, likely, concern for, or probable (associated with a specific diagnosis that is being evaluated, monitored, or treated as if it exists) are acceptable and can be coded in the inpatient setting, when documented at the time of discharge. Thank you, Ashley Muniz [facility], CDIS Extension: [phone] Please use your independent medical judgment in providing your response. THIS QUERY IS PART OF THE PERMANENT MEDICAL RECORD
--- NOTE | 2021-12-20 10:15 | MHC.CDI.RETR ---
Retrospective Query PHYSICIAN'S DOCUMENTATION REQUEST Date of Query: 12/20/21 1016 Patient Name: Ab Bearden Admit Date: 12/16/21 Dear Doctor, A review of the medical record indicates additional documentation may be needed. Please review below and update the documentation accordingly. Clinical Indicators: Risk Factors/Clinical Indicators/Treatments BMI: 45.6 Patient left against medical advice. If possible, please provide an associated diagnosis related to the abnormal BMI, such as: For a BMI >= 40: Overweight Obesity Due to excess calories Drug induced Due to other cause Severe or Morbid Obesity With alveolar hypoventilation Without alveolar hypoventilation Other Unable to determine Use of terms such as suspected, likely, concern for, or probable (associated with a specific diagnosis that is being evaluated, monitored, or treated as if it exists) are acceptable and can be coded in the inpatient setting, when documented at the time of discharge. Thank you, Ashley Muniz [facility], CDIS Extension: [phone] Please use your independent medical judgment in providing your response. THIS QUERY IS PART OF THE PERMANENT MEDICAL RECORD
== END 2021-12-17 01:30 | disposition home or self-care (01) | DRG 383 ==
LOC: HO.ED 23:23 → HO.EDOVER 12-16 00:29
PROVIDERS: Physician Assistant; Admitting Provider Internal Medicine; Emergency Provider Emergency Medicine Emergency Medical Services; PCP Internal Medicine; Visit Provider Internal Medicine
DX: L03.311 Cellulitis of abdominal wall (principal); K42.0 Umbilical hernia with obstruction, without gangrene; E66.01 Morbid (severe) obesity due to excess calories; Z68.42 Body mass index [BMI] 45.0-49.9, adult; Z98.84 Bariatric surgery status; Z88.0 Allergy status to penicillin; Z79.899 Other long term (current) drug therapy
CPT/HCPCS: 36415; 74177; 80048; 80076; 81003; 82565; 83605; 83690; 83735; 85025; 85652; 86140; 87040; 87070; 87205; 96361; 96365; 96375; 99218; 99284; 99285; J0696; J1885; J3370; Q9967